=== PATIENT | female | born 1960 | race Caucasian/White ===

== ENCOUNTER → 2016-12-10 | Outpatient (CLI) | payer MEDICARE, OTHER ==
[~2016-12-10] MED LIST: ABILIFY PO; ADVAIR 115-21; ADVAIR 250-501 EAC1 IH; ADVAIR 250-501 EACH IH; ADVAIR 2501 DISK W/D; ADVAIR 2501 DISK W/D PO; ADVAIR 5001 DISK W/D PO; ALBUTEROL MININEB NEB; ALBUTEROL/ATROVENT; ALBUTEROL17 GM INH; ALLERGY INJECTIONS SUBQ; ALLERGY RELIEF10 M6 PO; ALLERGY RELIEF25 MG PO; ALLERGY SHOT; ALLERGY SHOTS; ALLERGY SYR1 DIS.SYR MC; ALLI PO; AMBIEN PO; AMITRIPTYLINE H50 MG PO; AMITRIPTYLINE100 MG; AMITRYPTYLINE PO; ASPIRIN EC81 M1 PO; ASPIRIN81 M1 PO; ATARAX PO; AURALGAN EAR DR14 ML OT; BACLOFEN10 MG PO; BENADRYL PO; BENADRYL25 M1 PO; BENADRYL25 M3 PO; BUSPAR15 M1 PO; BYETTA; BYETTA10 MCG/0.0 INJ; BYETTA5 MCG/0.02 SQ; CAPOZIDE PO; CEFTIN PO; CELEBREX PO; CLARITIN10 M1 PO; COLACE PO; COUMADIN6 MG PO; DOXYCYCLINE HY100 M3 PO; DOXYCYCLINE PO; DUONEB 2.5-0.5 M3 ML; DUONEB 2.5-0.5 M3 ML NEB; ESTRADIOL0.5 MG PO; ETODOLAC500 MG PO; FLEXERIL PO; FLONASE16 GM; FLOVENT DISKUS50 MCG; FLUOXETINE HCL40 M1 PO; FUROSEMIDE40 MG PO; GEODAN; GEODAN PO; GEODON80 MG PO; GLIMEPIRIDE1 MG PO; GLUCOTROL PO; HCTZ PO; HUMULIN R100 U/ML SUBQ; HYDROCODON-ACE1 EAC4; HYDROCODON-ACE1 EAC4 PO; HYDROCODON-ACE1 EAC5 PO; HYDROXYZINE HCL50 MG; HYDROXYZINE HCL50 MG PO; KEFLEX PO; LIPITOR; LIPITOR PO; LIPITOR20 MG; LIPITOR20 MG DOB; LIPITOR20 MG PO; LODINE; LORTAB 10-5001 EACH PO; LORTAB 10/500 T1 TAB; LORTAB 10/500 T1 TAB PO; LORTAB 5/500 TA1 TA1 PO; MEDROL PO; MEDROXYPROGEST2.5 MG PO; MELATIN3 MG PO; METFORMIN; METFORMIN HCL500 M1; METFORMIN PO; MIRAPEX PO; MORPHINE IR; MORPHINE SULFAT15 M3 PO; MOVANTIK25 MG PO; MULTI-DAY VITAM1 TAB PO; MULTI-VITAMIN1 EAC1 PO; NEXIUM; NEXIUM PO; NOVOLIN N100 U/ML INJ; NOVOLIN R100 U/ML INJ; NYSTATIN15 G2 TD; OMEPRAZOLE40 M1 PO; PERCOCET 10/3251 TAB PO; PERCOCET5/325 PO; PHENERGAN PO; PREDNISONE PO; PRO AIR; PROAIR HFA8.5 GM IH; PROAIR HFA8.5 GM INH; PROZAC; PROZAC PO; REGLAN; REGLAN PO; REGLAN10 MG PO; RELAFEN PO; REMERON; REMERON15 MG; REMERON15 MG PO; ROBAXIN; ROBAXIN 750750 M1 PO; ROBAXIN 750750 MG PO; SINGULAIR; SINGULAIR PO; TOPAMAX; TOPAMAX PO; TOPAMAX200 MG PO; TRAZODONE; VASOTEC PO; VIBRAMYCIN100 M1 PO; VICODIN; VISTARIL; VITAMIN D1000 UNI2 PO; VITAMIN E100 UNI3 PO; ZONEGRAN100 M1 PO; ZONEGRAN100 MG PO; ZONISAMIDE; ZYRTEC PO; [UNRECOGNIZED DRUG - OTHER]; [UNRECOGNIZED DRUG - OTHER] PO
[2016-12-10 09:55] LABS: BASOPHIL% 0.7 % (0-2.5); EOSINOPHIL# 0.3 X10e3 (0-0.7); EOSINOPHIL% 4.5 % (0.0-7.0); HEMOGLOBIN 10.9 gm/dL (12.0-16.0); LYMPHOCYTE# 1.8 X10e3 (1.0-3.5); LYMPHOCYTE% 27.6 % (17.0-45.0); MEAN CORPUSCULAR HEMOGLOBIN 29.2 PG (28-34); MEAN CORPUSCULAR HGB CONC 32.1 g/dL (30-36); MEAN PLATELET VOLUME 9.2 FL (6.5-11.5); MONOCYTE# 0.6 X10e3 (0-1.0); NEUTROPHIL# 3.7 X10e3 (1.5-7.1); NEUTROPHIL% 58.2 % (40-75); PLATELET COUNT 205 X10e3 (140-420); RED BLOOD COUNT 3.73 X10e (3.90-5.30); RED CELL DISTRIBUTION WIDTH 14.2 % (11.0-15.5); WHITE BLOOD COUNT 6.4 X10e3 (4.0-10.5)
[2016-12-10 09:56] LABS: DIFF IND NO
== END | disposition home or self-care (01) ==
LOC: CLAB 09:30
PROVIDERS: Orthopaedic Surgery
DX: T84.84XA Pain due to internal orthopedic prosthetic devices, implants and grafts, initial encounter (principal); Z96.612 Presence of left artificial shoulder joint
CPT/HCPCS: 36415; 85025; 85652; 86140

== ENCOUNTER → 2016-12-16 | Outpatient (CLI) | payer MEDICARE, OTHER ==
--- NOTE | ~2016-12-16 | CT125 ---
[facility] A Service of [facility] & [facility] RADIOLOGY TEXT RESULTS PATIENT: HOOD CHO LOCATION: [facility] : 62 UNIT #: [id number] AGE: [address]: Rodrigo Belle MD SEX: F ORDER DR: [id number] [facility] [address] [place], [place] [address] [id number] O MR#: [id number] Acc #: [id number] NAME: HOOD CHO : 1960 SEX: F STUDY DATE/TIME: 12/16/2016 11:36 UNIT: [facility] ROOM: STUDY DESCRIPTION: CT Upper Ext Lt W Cont Attending Physician: Rodrigo Belle M.D. Ordering Physician: Rodrigo Belle M.D. Primary Care Physician: Donna Castellano M.D. MEDICAL IMAGING REPORT This report is preliminary unless electronic signature is present EXAM CT arthrogram left shoulder 12/16/2016 - metal reduction technique with coronal and sagittal reconstructions 12/16/2016. COMPARISON Left shoulder arthrogram 12/16/2016, left shoulder radiographs 12/07/2016, portable chest 10/19/2016 HISTORY Order states painful total shoulder arthroplasty, possible subscap failure. History sheet states left shoulder injury from a push injury 5 years ago. Left-sided pain worsening ever since. Pain worse over the last 2 years. No recent injury. 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 TECHNIQUE Axial images were obtained through the left shoulder with maximized metal reduction technique and positioned such that the opposite right shoulder arthroplasty was below the left shoulder arthroplasty scan plane. This CT exam was performed with one or more of the following radiation dose reduction techniques: automatic exposure control, adjustment of mA and/or kV according to patient size, and iterative reconstruction. FINDINGS The arthrogram demonstrates capsular irregularity and presumed proliferative synovitis. This is somewhat less apparent on the CT images. The patient is status post an anatomic total shoulder arthroplasty. No periprosthetic fracture is identified. The polyethylene glenoid component metallic marker appears in expected position. Glenoid component periprosthetic lucency is suspicious for [facility] A Service of [facility] & [facility] RADIOLOGY TEXT RESULTS PATIENT: HOOD CHO LOCATION: [facility] : 62 UNIT #: [id number] AGE: [address]: Rodrigo Belle MD SEX: F ORDER DR: dawn. There is contrast extension into the subacromial - subdeltoid bursa compatible with a full-thickness rotator cuff tear which appears to involve the supraspinatus at the level of the acromioclavicular joint. Infraspinatus tendon is favored to be intact. Supraspinatus and infraspinatus muscles show no atrophy. Teres minor muscle is unremarkable. There is marked atrophy of the subscapularis muscle especially in its cranial two-thirds. The subscapularis tendon cannot be traced to the lesser tuberosity and is presumably completely torn or detached. There is a suspected peripherally calcified oval ossification in the middle third subscapularis region which is indeterminate for a focus of bony avulsion of the subscapularis. Its position is not typical for a subscapularis recess glenohumeral joint space loose body. There is contrast extension from the subacromial - subdeltoid bursa into both the AC joint and an os acromiale. There is AC joint hypertrophic arthrosis. There is no obvious humeral component loosening. Status of the biceps tendon is indeterminate. Visualized left thorax and chest are unremarkable. No osseous lesion is noted. IMPRESSION 1. Anatomic left total shoulder arthroplasty with probable loosening of the polyethylene glenoid component without displacement or periprosthetic fracture. 2. 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 Status of the tendon is difficult to assess. There is however a peripherally calcified ossification in the subcoracoid region measuring 2 cm which appears to be within the upper subscapularis muscle tendon junction region. Appearance and location are not typical for an avulsed lesser tuberosity component or loose body. Chronic myotendinous ossification is also possible. 3. The humeral component of the arthroplasty is unremarkable. 4. Better demonstrated on the arthrogram is marked glenohumeral synovitis. 5. Contrast extension to the subacromial - subdeltoid bursa appears to be secondary to a supraspinatus tear/defect at the level of the AC joint. 6. Contrast extension from the subacromial - subdeltoid bursa into the AC joint and an os acromiale. [facility] A Service of [facility] RADIOLOGY TEXT RESULTS PATIENT: HOOD CHO LOCATION: [facility] : 62 UNIT #: [id number] AGE: [address]: Rodrigo Belle MD SEX: F ORDER DR: Dictated by... Licha Perez M.D. THIS IS AN ELECTRONICALLY VERIFIED REPORT Licha Perez M.D. at 12/17/2016 9:05 AM C/juliana TD: 12/16/2016 14:47 JOB #: [id number] MEDICAL IMAGING REPORT Page 1 of 1 COPY
--- NOTE | ~2016-12-16 | XA32 ---
[facility] A Service of [facility] & [facility] RADIOLOGY TEXT RESULTS PATIENT: HOOD CHO LOCATION: [facility] : 62 UNIT #: [id number] AGE: [address]: Rodrigo Belle MD SEX: F ORDER DR: [id number] [facility] [address] [place], [place] [address] [id number] O MR#: [id number] Acc #: [id number] NAME: HOOD CHO : 1960 SEX: F STUDY DATE/TIME: 12/16/2016 10:51 UNIT: [facility] ROOM: STUDY DESCRIPTION: XA Arthrogram Shoulder Lt Attending Physician: Rodrigo Belle M.D. Ordering Physician: Rodrigo Belle M.D. Primary Care Physician: Donna Castellano M.D. MEDICAL IMAGING REPORT This report is preliminary unless electronic signature is present EXAM Left shoulder arthrogram 12/16 HISTORY History of arthroplasty. Painful shoulder with possible arthroplasty failure. PROCEDURE Informed consent was obtained and time out was performed. The left shoulder was prepped and draped using maximum sterile barrier technique. 1% lidocaine without epinephrine used for local anesthesia. Under direct fluoroscopic visualization, the joint space was punctured via an anterior approach with a 22-guage spinal needle. Through this needle, the joint was injected with a 15 mL mixture of Isovue 200 contrast and a small amount of 1% lidocaine. No immediate complications were seen. The patient does have an arthroplasty. The joint capsule is markedly irregular. There is extension of contrast in the subacromial/subdeltoid bursa as well as into the AC joint space. Five fluoroscopic images were obtained. Total fluoro time is 0.8 minutes. IMPRESSION Successful injection of a left shoulder prior to CT arthrogram. Images demonstrated markedly irregular joint capsule with contrast extension into the subacromial/subdeltoid bursa and into the AC joint space. Please see the CT arthrogram report. Dictated by... Kris Wells Jr., M.D. THIS IS AN ELECTRONICALLY VERIFIED REPORT STS. [facility] A Service of [facility] & [facility] RADIOLOGY TEXT RESULTS PATIENT: HOOD CHO LOCATION: [facility] : 62 UNIT #: [id number] AGE: [address]: Rodrigo Belle MD SEX: F ORDER DR: Kris Wells Jr., M.D. at 12/17/2016 6:10 AM DARIAN/juliana TD: 12/16/2016 16:01 JOB #: [id number] MEDICAL IMAGING REPORT Page 1 of 1 COPY
== END | disposition home or self-care (01) ==
LOC: CIVR 08:49
DX: T84.84XA Pain due to internal orthopedic prosthetic devices, implants and grafts, initial encounter (principal); Z96.612 Presence of left artificial shoulder joint; M65.812 Other synovitis and tenosynovitis, left shoulder
CPT/HCPCS: 73040; 73201; Q9967

== ENCOUNTER → 2016-12-20 | Outpatient (CLI) | payer MEDICARE, OTHER ==
--- NOTE | ~2016-12-20 | NM4 ---
[facility] A Service of [facility] & [facility] RADIOLOGY TEXT RESULTS PATIENT: HOOD CHO LOCATION: [facility] : 62 UNIT #: [id number] AGE: [address]: Rodrigo Belle MD SEX: F ORDER DR: [id number] [facility] [address]. [place], [place] [address] [id number] O MR#: [id number] Acc #: [id number] NAME: HOOD CHO : 1960 SEX: F STUDY DATE/TIME: 12/20/2016 9:25 UNIT: [facility] ROOM: STUDY DESCRIPTION: MI Bone or Joint 3 Phase Study Attending Physician: Rodrigo Belle M.D. Referring Physician: Rodrigo Belle M.D. Ordering Physician: Rodrigo Belle M.D. Primary Care Physician: Donna Castellano M.D. MEDICAL IMAGING REPORT This report is preliminary unless electronic signature is present EXAM Three-phase bone scan of the shoulders, 12/20/2016. HISTORY Order states painful left total shoulder arthroplasty. Evaluate for loosening or infection. History sheet states left shoulder total arthroplasty 6 years ago. Pain ever since arthroplasty. Progressive worsening over the last several years. Lifted and shoulder popped about 4 years ago which started the worsening pain. Left total shoulder arthroplasty 2010. Right total shoulder arthroplasty 2009. 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 COMPARISON Left shoulder radiographs 12/07/2016, left shoulder arthrogram 12/16/2016, CT arthrogram left shoulder 12/16/2016. TECHNIQUE The patient received 28.1 mCi technetium 99m MDP intravenously and vascular flow, blood pool, and delayed images of the shoulders were obtained. Injection was performed in the right upper extremity. FINDINGS The vascular flow phase is normal. Blood pool phase demonstrates mild left shoulder periprosthetic uptake which appears to be slightly more prominent in the humeral region. Delayed-phase imaging demonstrates bilateral periprosthetic total shoulder arthroplasty uptake greater on the left. Uptake on the right is probably within normal limits. Uptake on the left is noted in the lateral periprosthetic proximal humerus, acromioclavicular joint region, and glenoid and/or coracoid region. Findings are nonspecific and could be seen in the setting of loosening or less likely infection given the normal STS. [facility] A Service of [facility] & [facility] RADIOLOGY TEXT RESULTS PATIENT: HOOD CHO LOCATION: [facility] : 62 UNIT #: [id number] AGE: [address]: Rodrigo Belle MD SEX: F ORDER DR: phase 1 and only mildly abnormal phase II images. Cervical spine uptake appears to be secondary to mid cervical facet arthrosis. IMPRESSION 1. Normal phase 1 of the shoulders. 2. Minimal phase II and mild phase III left total shoulder arthroplasty. Prosthetic uptake could reflect uptake secondary to loosening. Lack of phase 1 uptake and minimal phase II uptake goes against infection. 3. Mild right total shoulder periprosthetic uptake is probably within normal limits. 4. Cervical spine uptake likely due to facet arthrosis. 5. Comparison is made to prior studies including the recent CT arthrogram of the left shoulder. Dictated by... Licha Perez M.D. THIS IS AN ELECTRONICALLY VERIFIED REPORT Licha Perez M.D. at 12/23/2016 2:23 PM DIYA/johan TD: 12/23/2016 12:58 JOB #: [id number] MEDICAL IMAGING REPORT Page 1 of 1 COPY
== END | disposition home or self-care (01) ==
LOC: CNUC 08:54
DX: T84.84XA Pain due to internal orthopedic prosthetic devices, implants and grafts, initial encounter (principal); Z96.612 Presence of left artificial shoulder joint
CPT/HCPCS: 78315; A9503

== ENCOUNTER → 2016-12-28 | Outpatient (CLI) | payer MEDICARE, OTHER ==
--- NOTE | ~2016-12-28 | EKG ---
PATIENT: HOOD CHO UNIT #: [id number] Ventricular Rate: 64 BPM Atrial Rate: 64 BPM P-R Interval: 188 ms QRS Duration: 110 ms Q-T Interval: 420 ms QTC Calculation(Bezet): 433 ms P Spring: 41 degrees Calculated R Spring: 23 degrees Calculated T Spring: 22 degrees Diagnosis Line: Normal sinus rhythm Diagnosis Line: Normal ECG Diagnosis Line: When compared with ECG of 26-MAR-2015 09:14, Diagnosis Line: No significant change was found Diagnosis Line: Confirmed by ARIANNA HERNANDEZ MD ([id number]) on 12/29/2016 Diagnosis Line: 7:29:37 AM INTERPRETING MD: DAVID BETH
[2016-12-28 11:19] LABS: URINE APPEARANCE CLEAR; URINE BILIRUBIN NEG (NEG); URINE BLOOD NEG (NEG); URINE COLOR YELLOW; URINE GLUCOSE NEG (NEG); URINE KETONE NEG (NEG); URINE LEUKOCYTE ESTERASE NEG (NEG); URINE NITRATE NEG (NEG); URINE PROTEIN NEG (NEG); URINE UROBILINOGEN 0.2 MG/DL (NEG)
[2016-12-28 11:27] LABS: CULTURE INDICATED? NO; URINE SOURCE CLEAN CATCH
[2016-12-28 11:30] LABS: HEMOGLOBIN 11.4 gm/dL (12.0-16.0); MEAN CORPUSCULAR HEMOGLOBIN 28.9 PG (28-34); MEAN CORPUSCULAR HGB CONC 31.8 g/dL (30-36); RED BLOOD COUNT 3.96 X10e (3.90-5.30); RED CELL DISTRIBUTION WIDTH 14.1 % (11.0-15.5); WHITE BLOOD COUNT 7.6 X10e3 (4.0-10.5)
[2016-12-28 11:46] LABS: BUN/CREATININE RATIO 12.72; CALCIUM SERUM 9.3 mg/dL (8.4-10.2); CREATININE SERUM 1.1 mg/dL (0.6-1.4); GLOM FILT RATE Estimated 56.5 mL/min (>60); POTASSIUM 4.6 mmol/L (3.5-5.1)
== END | disposition home or self-care (01) ==
LOC: CAMB 10:00 → EDSTATUS 10:00 → CAMB 10:01
PROVIDERS: Orthopaedic Surgery
DX: T84.098A Other mechanical complication of other internal joint prosthesis, initial encounter (principal); Z96.612 Presence of left artificial shoulder joint
CPT/HCPCS: 36415; 80048; 81003; 85027; 85652; 86140; 87070; 93005

== ENCOUNTER 2017-01-05 13:53 | Inpatient (IN) | payer MEDICARE, OTHER ==
--- NOTE | ~2017-01-05 | DS ---
Unit #: [id number] #: [id number] Patient: HOOD CHO [id number] [address] [place], [place] [address] [id number] I MR#: [id number] NAME: HOOD CHO ROOM: 450 Age: 56 Sex: F Admission Date: 01/05/2017 : 1960 Discharge Date: 01/07/2017 Attending Physician: Rodrigo Belle M.D. Referring Physician: Rodrigo Belle M.D. Primary Care Physician: Donna Castellano M.D. DISCHARGE SUMMARY ADMITTING DIAGNOSES 1. Pain due to internal orthopedic prosthetic device. 2. Status post left total shoulder replacement. DISCHARGE DIAGNOSIS Pain due to internal orthopedic prosthetic device status post removal of left total shoulder arthroplasty and placement of antibiotic spacer. PROCEDURES PERFORMED On 01/05/2017 the patient underwent removal of left total shoulder arthroplasty and placement of antibiotic spacer. Please see operative report for further details. BRIEF HISTORY Hood is a patient who was seen in our office for painful left total shoulder arthroplasty. CT scan and 3-phase bone scan were obtained, which showed loosening of her glenoid component, as well as subscapularis failure and possible supraspinatus tear. Due to the amount of pain and dysfunction in her left shoulder, we discussed revision options. Dr. Belle recommended removal of her left total shoulder arthroplasty and placement of antibiotic spacer versus reverse shoulder arthroplasty. The benefits, risks and alternatives were discussed with the patient, and she elected to proceed with surgery on 01/05/2017. HOSPITAL COURSE On the night of surgery, the patient was transferred to the orthopedic unit for postoperative care. The patient remained stable. On postop day number 1 the patient's vital signs remained stable. She was awake, alert and oriented x3 and in no acute distress. Her left upper extremity incision was clean, dry and intact with no surrounding erythema, warmth or hematoma. She had 100 mL of serosanguineous drainage out of her Hemovac drain overnight. This was discontinued in the room. She was neurovascularly intact in the median, ulnar and radial nerves. She had normal sensation to light touch in all 5 digits. Postoperative x-rays of the left shoulder showed that she is status post removal of a left total shoulder arthroplasty and placement of antibiotic spacer. Her intraoperative cultures were pending. HER hemoglobin was 9.6, and her white blood cell count was 7.4. She worked with physical therapy on range of motion of the elbow, wrist and hand, as well as ambulating and use of the sling. She was cleared by physical therapy to discharge home. She was on aspirin and in SCDs for DVT prophylaxis. Her pain was well controlled. Unit #: [id number] #: [id number] Patient: HOOD CHO On postop day number 2 the patient remained stable. She was awake, alert and oriented x3 and in no acute distress. Her incision remained clean, dry and intact with no surrounding erythema, warmth or hematoma. She was neurovascularly intact in the median, ulnar and radial nerves. Her white blood cell count was 7, and hemoglobin was 9.1. Intraoperative wound cultures showed no growth at 48 hours. She remained nonweightbearing to left upper extremity and in her sling. She remained on DVT prophylaxis. At this time, she is stable for discharge home. We will plan to send her home on prophylactic doxycycline for 2 weeks. CONDITION AT DISCHARGE Stable. DISPOSITION The patient will be discharged home where she has family to help with postoperative care. DISCHARGE MEDICATIONS 1. ProAir inhaler 2 puffs q.i.d. as needed for shortness of air. 2. Albuterol 3 mL neb q.4 hours as needed for shortness of air. 3. Advair Diskus 250/50 mcg 1 inhalation b.i.d. 4. Fluticasone propionate. 5. Topamax 200 mg p.o. b.i.d. 6. Zonegran 4 capsules at bedtime. 7. Amitriptyline 50 mg p.o. daily. 8. Fluoxetine two 40 mg tabs every morning. 9. Byetta 5 mcg subcu at dinner. 10. Metformin 1,000 mg p.o. b.i.d. 11. Nystatin 1 application b.i.d. as needed. 12. Cetirizine 10 mg p.o. daily. 13. Benadryl 25 mg every morning as needed. 14. Geodon 80 mg p.o. b.i.d. 15. BuSpar 15 mg p.o. t.i.d. 16. Estradiol 0.5 mg p.o. every morning. 17. Movantik 25 mg p.o. daily. 18. Lipitor 20 mg p.o. every morning. 19. Singulair 10 mg p.o. at bedtime. 20. Multivitamin 1 tab p.o. daily. 21. Melatonin 3 mg 4 tabs p.o. q.h.s. 22. Aspirin 81 mg p.o. daily. 23. Morphine sulfate ER tab 15 mg p.o. q.12 hours as needed for pain. 24. Medroxyprogesterone acetate tab 2.5 mg every morning. 25. Prilosec 40 mg p.o. every morning. 26. Robaxin 750 mg p.o. b.i.d. 27. Glimepiride 1 mg p.o. at supper. 28. Weekly allergy injections. 29. Vitamin C, D and E combo 1 tab p.o. every morning. 30. Percocet 5/325 mg 1-2 tabs p.o. q.4 hours p.r.n. (dispensed #65). 31. Doxycycline 100 mg p.o. b.i.d. for 14 days (dispensed #28). NOTE: The patient was sent home with prescriptions for Percocet and doxycycline. DISCHARGE INSTRUCTIONS AND FOLLOWUP 1. The patient will be discharged home today. 2. She will follow up with Dr. Belle in 2 weeks' time. 3. She will remain nonweightbearing of the left upper extremity in her sling. She may remove her sling 2 to 3 times daily to perform range Unit #: [id number] #: [id number] Patient: HOOD CHO of motion of the elbow, wrist and hand. 4. She will perform daily dressing changes to the left upper extremity. 5. She may shower, but she must keep an occlusive dressing over the incision site as to not get the incision wet. Dictated by... Sandi Adam APRN for Brenda Hernandez/javy TD: 01/07/2017 13:08 JOB #: [id number] DISCHARGE SUMMARY Page 1 of 1 X SANDI ADAM APRN X DISCHARGE SUMMARY
--- NOTE | ~2017-01-05 | CR229 ---
[facility] A Service of [facility] RADIOLOGY TEXT RESULTS PATIENT: HOOD CHO LOCATION: [place] [address] : [birth year] UNIT #: [id number] AGE: [address]: Rodrigo Belle MD SEX: F ORDER DR: [id number] [facility] [address]. [place], [place] [address] [id number] I MR#: [id number] Acc #: [id number] NAME: HOOD CHO : 1960 SEX: F STUDY DATE/TIME: 01/05/2017 21:50 UNIT: [id number] ROOM: STUDY DESCRIPTION: CR Shoulder Min 2 View Lt Attending Physician: Rodrigo Belle M.D. Referring Physician: Lew Castro M.D. Ordering Physician: Rodrigo Belle M.D. Primary Care Physician: Donna Castellano M.D. MEDICAL IMAGING REPORT This report is preliminary unless electronic signature is present EXAM Left shoulder series. INDICATION Postoperative evaluation. Shoulder surgery today. PROCEDURE Two views left shoulder. COMPARISON 12/07/16 FINDINGS Interval removal of the shoulder prosthesis. Degenerative change of the glenoid again seen. No acute procedure-related complication. IMPRESSION Expected postoperative appearance. Dictated by... Deepak Hamilton M.D. THIS IS AN ELECTRONICALLY VERIFIED REPORT Deepak Hamilton M.D. at 01/06/2017 10:08 AM [place] TD: 01/05/2017 22:27 JOB #: [id number] MEDICAL IMAGING REPORT Page 1 of 1 COPY
--- NOTE | ~2017-01-05 | OR ---
Unit #: [id number] #: [id number] Patient: HOOD CHO [id number] [address] [address] [id number] MR#: [id number] NAME: HOOD CHO ROOM: [facility] Date of Procedure: 01/05/2017 Admission Date: 01/05/2017 Surgeon: Rodrigo Belle M.D. : 1960 Attending Physician: Rodrigo Belle M.D. Referring Physician: Rodrigo Belle M.D. Primary Care Physician: Donna Castellano M.D. OPERATIVE REPORT PREOPERATIVE DIAGNOSIS Failed left total shoulder arthroplasty. POSTOPERATIVE DIAGNOSIS Failed left total shoulder arthroplasty. PROCEDURES PERFORMED 1. Explantation of left total shoulder arthroplasty. 2. Arthrotomy of glenohumeral joint with debridement and extensive synovectomy. 3. Left shoulder hemiarthroplasty with antibiotic spacer. [employer] OPERATOR rEyn Guadalupe. ANESTHESIA General with interscalene nerve block. ESTIMATED BLOOD LOSS 250 mL. COMPLICATIONS None apparent. SPECIMENS 1. Humeral component tissue for culture. 2. Humeral membrane tissue for culture. 3. Glenoid tissue for culture. INDICATIONS FOR PROCEDURE Rosalia is a 56-year-old female with a painful left total shoulder arthroplasty. She has a loose glenoid component and an anteriorly subluxed humeral component with subscapularis insufficiency. We have discussed explantation of the total shoulder components and possible revision to a reverse shoulder arthroplasty versus possible staged procedure and implantation of antibiotic spacer. The nature of the surgery was discussed with the patient. Risks, benefits, and alternatives were reviewed. She elected to proceed. DESCRIPTION OF PROCEDURE The patient was identified in the preoperative holding area. The Unit #: [id number] #: [id number] Patient: HOOD CHO operative site was marked. A regional anesthetic block was performed. The patient was brought to the operating room and placed supine on the operating table. A general anesthetic was induced. The patient was positioned in the beach-chair position. Left upper extremity was prepped and draped in sterile fashion. The previous incision was reopened and dissection carried down through the subcutaneous tissues. The previous deltopectoral interval was identified. The subdeltoid space was developed. There was a scarred surgical plane through here. The subcutaneous tissues were dissected free to further expose the pectoralis major muscle. The soft tissue planes medially were obliterated. We did eventually identify the plane between the pectoralis major and conjoined tendon as well as identified the underlying subscapularis, which was adhesed to the undersurface of the conjoined tendon. The subdeltoid space was significantly scarred and adhesed as well. This was developed and the humeral component was visible under thin fibrous layer anteriorly. This was some pseudo capsular tissues; however, the subscapularis was identifiable more inferiorly. The tissue was taken down in a direct subscapularis peel medially. The shoulder was then dislocated anteriorly. Soft tissue was taken from around the head of the component. The head was then removed with a tuning fork device. More soft tissue was taken from the humeral implant. Attention was then turned to the glenoid. The humerus was subluxed posteriorly. We had straightforward end-on access to the glenoid component. There was a profound amount of glenoid wear noted on the posterior-inferior aspect. The glenoid was loose and easily retrievable. The backside of the glenoid was filled with fibrous tissue. This was taken for culture. The remaining fibrous tissue was resected. There was a central cavitary defect from the keeled glenoid component; however, there were several other perforations in the glenoid. The source of these is not clear other than potentially osteolysis from the glenoid wear. There was a bony defect in the anterior superior and posterior superior glenoid as well. The remaining cement was removed from the keeled component with quarter-inch osteotome as well as a 4.0 mm davin. Once we had adequately removed all cement and fibrous tissue, the wound was then irrigated with pulsatile lavage with bacitracin. Attention was then turned back to the humerus. A combination of the 4.0 mm davin and flexible osteotomes were used to expose the humeral component. The back flap attachment was attached and then this was removed uneventfully from the humerus without need for an osteotomy. The canal was curetted and soft tissue taken for culture as well. The size of the stem removed was a size 8. We had difficulty placing a size 8, broached down and elected to place a size 6 cement restrictor. Cement was mixed with vancomycin in the powder and a size 6 cement mold fashion. The wound was again irrigated with pulsatile lavage. A small amount of cement again with vancomycin was mixed to cement the spacer in proximally. Loose proximal cementing was performed to hold the stem stable, but facilitate future removal. The shoulder was then reduced. The subscapularis was identified. We made an attempt to preserve this tissue by placing an anchor and then a transosseous tunnel in the humerus for repair; however, the sutures pulled through the tunnel as well. Therefore, we were unable to reapproximate the subscapularis. The supraspinatus was intact. The wound was then closed over a subdeltoid drain with 0 Vicryl, 2-0 Unit #: [id number] #: [id number] Patient: HOOD CHO Vicryl, and chaz in the skin. Sterile dressings were applied. The patient was placed in a shoulder immobilizer. DISPOSITION Stable to the recovery room. Dictated by... Brenda Hernandez/damian TD: 01/06/2017 15:09 JOB #: [id number] OPERATIVE REPORT Page 1 of 1 X Rodrigo Belle MD X PROCEDURE OPERATIVE NOTE
[~2017-01-05 13:53] MED LIST changes: -ALLERGY RELIEF10 M6 PO; -AMITRIPTYLINE H50 MG PO; -ASPIRIN EC81 M1 PO; -DOXYCYCLINE HY100 M3 PO; -FLOVENT DISKUS50 MCG; -MELATIN3 MG PO; -PERCOCET5/325 PO
[2017-01-05] MEDS ORDERED: FLOVENT DISKUS50 MCG (14:22)
[2017-01-05] MEDS ORDERED: ALLERGY RELIEF10 M6 PO (14:23)
[2017-01-05] MEDS ORDERED: MELATIN3 MG PO (14:26)
[2017-01-05] MEDS ORDERED: AMITRIPTYLINE H50 MG PO (14:29)
[2017-01-05] MEDS ORDERED: ASPIRIN EC81 M1 PO (14:34)
[2017-01-06 10:39] LABS: BASOPHIL% 0.3 % (0-2.5); EOSINOPHIL# 0.2 X10e3 (0-0.7); EOSINOPHIL% 2.9 % (0.0-7.0); HEMATOCRIT 29.7 % (35.0-45.0); HEMOGLOBIN 9.6 gm/dL (12.0-16.0); LYMPHOCYTE# 1.9 X10e3 (1.0-3.5); LYMPHOCYTE% 25.3 % (17.0-45.0); MEAN CELL VOLUME 90.9 FL (83-96); MEAN CORPUSCULAR HEMOGLOBIN 29.4 PG (28-34); MEAN CORPUSCULAR HGB CONC 32.3 g/dL (30-36); MEAN PLATELET VOLUME 9.3 FL (6.5-11.5); MONOCYTE# 0.6 X10e3 (0-1.0); MONOCYTE% 8.1 % (3.0-12.0); NEUTROPHIL# 4.7 X10e3 (1.5-7.1); NEUTROPHIL% 63.4 % (40-75); PLATELET COUNT 192 X10e3 (140-420); RED BLOOD COUNT 3.27 X10e (3.90-5.30); RED CELL DISTRIBUTION WIDTH 14.1 % (11.0-15.5); WHITE BLOOD COUNT 7.4 X10e3 (4.0-10.5)
[2017-01-06 10:41] LABS: DIFF IND NO
[2017-01-07 03:45] LABS: HEMATOCRIT 28.6 % (35.0-45.0); HEMOGLOBIN 9.1 gm/dL (12.0-16.0); MEAN CELL VOLUME 91.5 FL (83-96); MEAN CORPUSCULAR HEMOGLOBIN 29.1 PG (28-34); MEAN CORPUSCULAR HGB CONC 31.8 g/dL (30-36); MEAN PLATELET VOLUME 9.8 FL (6.5-11.5); RED BLOOD COUNT 3.12 X10e (3.90-5.30); RED CELL DISTRIBUTION WIDTH 13.9 % (11.0-15.5)
[2017-01-07] MEDS ORDERED: PERCOCET5/325 PO (08:19)
[2017-01-07] MEDS ORDERED: DOXYCYCLINE HY100 M3 PO (08:20)
== END 2017-01-07 11:10 | disposition home or self-care (01) | DRG 497 ==
LOC: CSUR 13:53 → CPACUOF 15:11 → CSUR 15:30 → CPACUOF 20:00 → C4B 20:00 → CPACUOF 22:39 → C4B 22:39
PROVIDERS: Nurse Practitioner; Orthopaedic Surgery
PROC: 0RBK0ZZ Excision of Left Shoulder Joint, Open Approach (ICD-10-PCS; 2017-01-05)
PROC: 0RHK08Z Insertion of Spacer into Left Shoulder Joint, Open Approach (ICD-10-PCS; 2017-01-05)
PROC: 0RPK0JZ Removal of Synthetic Substitute from Left Shoulder Joint, Open Approach (ICD-10-PCS; principal; 2017-01-05 15:30)
DX: T84.098A Other mechanical complication of other internal joint prosthesis, initial encounter (principal); T84.058A Periprosthetic osteolysis of other internal prosthetic joint, initial encounter; I10 Essential (primary) hypertension; T84.84XA Pain due to internal orthopedic prosthetic devices, implants and grafts, initial encounter; F31.9 Bipolar disorder, unspecified; F41.9 Anxiety disorder, unspecified; K21.9 Gastro-esophageal reflux disease without esophagitis; Z86.010 Personal history of colon polyps; E11.9 Type 2 diabetes mellitus without complications; J44.9 Chronic obstructive pulmonary disease, unspecified; J45.909 Unspecified asthma, uncomplicated; G47.33 Obstructive sleep apnea (adult) (pediatric); M06.9 Rheumatoid arthritis, unspecified; Z90.49 Acquired absence of other specified parts of digestive tract; Z79.84 Long term (current) use of oral hypoglycemic drugs; Z82.61 Family history of arthritis; Z83.3 Family history of diabetes mellitus; Z82.49 Family history of ischemic heart disease and other diseases of the circulatory system; Z83.42 Family history of familial hypercholesterolemia; Z82.3 Family history of stroke; Z81.8 Family history of other mental and behavioral disorders
CPT/HCPCS: 73030; 82947; 85025; 85027; 87070; 87075; 87205; 94760; 97110; 97116; 97161; C1713; C1776; G8978-GP; G8979-GP; G8980-GP; J0131; J0330; J0690; J1170; J1885; J2250; J2270; J2405; J3010; J3370

== ENCOUNTER → 2017-04-01 | Outpatient (CLI) | payer MEDICARE, OTHER ==
[~2017-04-01] MED LIST changes: +ALLERGY RELIEF10 M6 PO; +AMITRIPTYLINE H50 MG PO; +ASPIRIN EC81 M1 PO; +DOXYCYCLINE HY100 M3 PO; +FLOVENT DISKUS50 MCG; +MELATIN3 MG PO; +PERCOCET5/325 PO
[2017-04-01 17:39] LABS: ALBUMIN SERUM 4.2 g/dL (3.5-5.0); BILIRUBIN,TOTAL 0.7 mg/dL (0.2-2.0); CALCIUM SERUM 9.4 mg/dL (8.4-10.2); GLOM FILT RATE Estimated 63.4 mL/min (>60); POTASSIUM 4.6 mmol/L (3.5-5.1); PROTEIN TOTAL SERUM 6.5 g/dL (6.0-8.3)
== END | disposition home or self-care (01) ==
LOC: CLAB 15:57
PROVIDERS: Internal Medicine Endocrinology, Diabetes & Metabolism
DX: E11.9 Type 2 diabetes mellitus without complications (principal); F41.1 Generalized anxiety disorder; F31.9 Bipolar disorder, unspecified
CPT/HCPCS: 36415; 80053; 80061; 83036